=== PATIENT | female | born 1980 | race Caucasian/White ===

== ENCOUNTER 2017-03-16 15:42 | Emergency (ER) | payer OTHER ==
--- NOTE | ~2017-03-16 | ER ---
PATIENT'S NAME: EDWIN ESCAMILLA [facility] AGE: 36 Y [address] ROOM: [place] [address] LOCATION: ED ADMIT DATE: 03/16/2017 ER/Outpatient Report DISCHARGE DATE: 03/16/2017 FAMILY PHYSICIAN: PHYSICIAN, NO ATTENDING PHYSICIAN: Tabitha Simpson The patient is seen at 1600 hours. HISTORY OF PRESENT ILLNESS: The patient is a 36-year-old female who said last Thursday she started to feel sick including some chills and back pain. The patient was then evaluated in the emergency room at [place] by Dr. Hui. The patient's evaluation at that time did show that she had a temperature of 100.8. Blood cultures were obtained, which were negative. Her urine showed possible infection with some hematuria and a few white cells. The patient, however, had been seen the following day by Dr. Marks and was started on Levaquin at that time. The patient then was seen again today at [facility] by Dr. Marks. Her urine was clear. Dr. Marks thought maybe some of her symptoms were due to her environmental allergies. The patient did not experience any dysuria, however, she does have a history of urinary tract infection and has been evaluated several years ago at [facility]. The patient presents today in the emergency room mostly of continued back pain and lethargy. She denies any fever or chills within the last 12-24 hours. ALLERGIES: SHE HAS NO MEDICINAL ALLERGIES. HOME MEDICATIONS: See her copied list which is reviewed. MEDICAL HISTORY: Does include previous kidney infections, depression, and endometriosis. SURGERIES: Include appendectomy, T and A. She has had a previous cystoscopy, colonoscopy, and laparoscopic exam. SOCIAL HISTORY: She is . Nonsmoker. No alcohol. REVIEW OF SYSTEMS: Today, GENERAL: She has had no fever or chills, just felt lethargic. HEAD AND EENT: Denies any headache or sore throat. Does have some mild nasal congestion due to her allergies. PATIENT'S NAME: EDWIN ESCAMILLA [facility] AGE: 36 Y [address] ROOM: [place], [place] [address] LOCATION: ED ADMIT DATE: 03/16/2017 ER/Outpatient Report DISCHARGE DATE: 03/16/2017 FAMILY PHYSICIAN: PHYSICIAN, NO ATTENDING PHYSICIAN: Tabitha Simpson RESPIRATORY: She denied any cough, wheezing, shortness of breath, or chest pain. GASTROINTESTINAL: No vomiting. No diarrhea. No abdominal pain. GENITOURINARY: Her last period was about 2 weeks ago. She denies any dysuria. Musculoskeletal: She actually denies any flank pain. Her back pain is lower. OBJECTIVE FINDINGS: VITAL SIGNS: She had blood pressure of 112/69, her temperature was 97.1, her respiratory rate was 18, pulse 75, and her O2 saturations 98%. GENERAL APPEARANCE: Alert, well nourished, in no acute distress. HEENT: Eyes: Sclerae appeared clear. Pupils equal. Ears: Presence of cerumen bilaterally, but no reddened tympanic membranes. Mouth: Teeth in good repair. Throat appeared maybe slightly red. NECK: Supple. No adenopathy. LUNGS: Breath sounds sound a little diminished, but no rales noted. HEART: Regular rhythm without murmur. ABDOMEN: Soft and nontender. EXTREMITIES: No pedal edema. LABORATORY DATA: Her lab work today, [facility]: She had a glucose that was high at 118. Her albumin was low at 3.3. Globulin high at 4.6. A/G ratio was 0.7. CBC: White count was 8.3, hemoglobin 13.3. Her ANC was 7.4. Her urine showed no significant signs of infection. CT abdomen and pelvis, stone protocol, showed no obstructive symptoms, kidneys appeared normal, but Radiology reported left lower lobe pneumonia. ASSESSMENT: 1. Left lower lobe pneumonia. 2. History of previous urinary tract infections. 3. History of depression. 4. Status post appendectomy, tonsillectomy and adenoidectomy. 5. Hematuria. PLAN: Advised to continue the Levaquin until gone. Recommend she follow up with her primary care in [place] on . Also possibly recheck urine in the next couple of weeks for hematuria. Continue either Tylenol or ibuprofen for general discomfort. The patient verbalized understanding of our findings and questions answered. PATIENT'S NAME: TISHAEDWIN White [facility] AGE: 36 Y [address] ROOM: [place] [address] LOCATION: [facility] ADMIT DATE: 03/16/2017 ER/Outpatient Report DISCHARGE DATE: 03/16/2017 FAMILY PHYSICIAN: SONAL ELDRIDGE ATTENDING PHYSICIAN: Tabitha Simpson PA FOR TABITHA SIMPSON DO SWJ/modl /[id number] d: 03/17/17 0047 t: 03/25/17 0701, OUTPATIENT REPORT
[2017-03-16 16:22] LABS: BASOPHIL % 0.2 %; HEMATOCRIT 39.5 % (33.0-46.0); HEMOGLOBIN 13.3 g/dL (11.0-15.0); IMMATURE GRANULOCYTE % 0.4 %; LYMPHOCYTE # 0.7 K/uL (0.8-4.0); LYMPHOCYTE % 8.8 %; MCH 31.6 pg (27.0-34.0); MCHC 33.7 gm/dL (32.0-36.5); MCV 93.8 fl (83.0-98.0); MONOCYTE # 0.1 K/uL (0.0-1.0); MONOCYTE % 0.7 %; MPV 11.2 fl (9.4-12.4); NEUTROPHIL # (ANC) 7.4 K/uL (1.8-7.8); NEUTROPHIL % 89.9 %; NRBC % 0 /100WBC (0-0.00); PLATELET COUNT 268 K/uL (150-450); RBC 4.21 M/uL (3.50-5.50); RDW-CV 13.1 % (11.9-14.6); WBC 8.3 K/uL (4.0-11.0)
[2017-03-16 16:39] LABS: ALBUMIN 3.3 gm/dL (3.5-5.0); ALK PHOS 60 IU/L (33-138); ALT 23 IU/L (12-78); ANION GAP 11.1 (10.0-19.0); AST 16 IU/L (10-40); BLOOD UREA NITROGEN 7 mg/dL (6-24); CALCIUM 9.1 mg/dL (8.5-10.5); CHLORIDE 104 mMol/L (96-110); CO2 27 mMol/L (22-32); CREATININE 0.9 mg/dL (0.5-1.1); ESTIMATED GFR (MDRD EQUATION) > 60; POTASSIUM 4.1 mMol/L (3.7-5.1); SODIUM 138 mMol/L (135-145); TOTAL BILIRUBIN 0.7 mg/dL (0.0-1.5); TOTAL PROTEIN 7.9 g/dL (6.0-8.4)
[2017-03-16 18:24] LABS: BILIRUBIN URINE NEGATIVE (NEGATIVE); BLOOD URINE 25 /UL (NEGATIVE); COLOR URINE YELLOW (YELLOW); GLUCOSE URINE NEGATIVE (NEGATIVE); KETONE URINE NEGATIVE (NEGATIVE); LEUKOCYTES URINE 25 /UL (NEGATIVE); NITRITE URINE NEGATIVE (NEGATIVE); PROTEIN URINE NEGATIVE (NEGATIVE); SPEC GRAVITY URINE 1.005 (1.003-1.035); TURBIDITY URINE CLEAR (CLEAR); UROBILINOGEN URINE NORMAL (NORMAL)
[2017-03-16 18:34] LABS: RBC URINE 0-2 #/HPF (NEGATIVE); WBC URINE RARE #/HPF (NEGATIVE)
[2017-03-16 18:35] LABS: BACTERIA URINE NEGATIVE (NEGATIVE)
== END 2017-03-16 18:49 | disposition disaster alternative care site (69) ==
LOC: GMED 15:42
PROVIDERS: Emergency Medicine
DX: J18.9 Pneumonia, unspecified organism (principal); F32.9 Major depressive disorder, single episode, unspecified; R31.9 Hematuria, unspecified; Z87.440 Personal history of urinary (tract) infections; Z90.49 Acquired absence of other specified parts of digestive tract; Z79.899 Other long term (current) drug therapy